=== PATIENT | female | born 1980 | race Caucasian/White ===

== ENCOUNTER 2020-03-25 09:34 | Day surgery (SDC) | payer OTHER ==
[2020-03-19 14:35] LABS: Absolute Lymphocytes (CBC) 0.6 K/uL (0.7-4.9); Basophils % 0.8 % (0-1.3); Hematocrit 33.8 % (36.0-45.0); Lymphocytes % 11.9 % (15.3-44.8); MPV 7.3 fL (7.6-11.3); RBC Red Blood Cell Count 3.86 M/uL (3.86-4.86)
[2020-03-19 15:35] LABS: Urine Appearance CLEAR; Urine Bilirubin NEGATIVE (NEG); Urine Blood NEGATIVE (NEG); Urine Color YELLOW; Urine Glucose NEGATIVE (NEG); Urine Protein NEGATIVE (NEG); Urine Specific Gravity >=1.030 (1.005-1.030); Urine Urobilinogen 0.2 mg/dL (0.2-1.0); Urine pH 5.5 (5.0-7.0)
[2020-03-19 15:50] LABS: Urine Microscopic Reflex NO UMIC
--- OUTSIDE RECORDS SUMMARY | 2020-03-25 09:37 | XMS REPORT | Continuity of Care Document ---
:1980 Author Organization [facility] Care Team Providers Name Role Phone G-volution Information miiCard Unavailable Un available Problems Problem Status Onset Classification Date Comments Sourc e Date Reported Atrial fibrillation Resolved Problem 01/20/2020 [facility] (disorder) Neuro Cerebral infarction Active Problem 01/20/2020 [facility] (disorder) Neuro Clot hematuria Resolved Problem 01/20/2020 Misc her (disorder) Neuro Crohn's disease Active Problem 01/20/2020 Mis raiza (disorder) Neuro History of - CVA Active Problem 01/20/2020 Mi tyree (context-dependent N euro category) Supraventricular Resolved Problem 01/20/2020 Mi tyree tachycardia Neuro (disorder) Medications Medication Details Route Status Patient Ordering Order Source Instructions Provider Date Entyvio 300 mg, Active Mischer IV, q6wk, 019 Neuro 0 Refill(s) rivaroxaban 15 15 mg = 1 Active Mischer MG Oral Tablet tab, PO, 019 Neuro [Xarelto] QPM, # 30 tab, 5 Refill(s), Pharmacy: [facility] Tramadol 50 mg, PO, Active [facility]ischer Q4-6H, PRN 019 Neuro Pain, # 20 tab, 0 Refill(s) Remicade 5 mg/kg, Active Mischer IV, 0 019 Neuro Refill(s) Imuran Daily, 0 Active Mischer Refill(s) 019 Neuro Prilosec PO, Daily, Active Mischer 0 019 Neuro Refill(s) rivaroxaban 15 15 mg = 1 No Longer Misch er MG Oral Tablet tab, PO, Active 019 Neuro [Xarelto] QPM, # 30 tab, 3 Refill(s), Pharmacy: [facility] Probiotic 1,000 mg Active Mischer Formula =, PO, 019 Neuro Daily, 0 Refill(s) Vitamin B12 1000 1,000 Active Mischer mcg/mL microgram, 019 Neuro injectable IM, qWeek, solution 0 Refill(s) Vitamin D3 10,000 Active Mischer IntlUnit, 019 Neuro PO, Daily, 0 Refill(s) Ranitidine 150 mg, Active Mischer PO, Daily, 019 Neuro 0 Refill(s) Phentermine 37.5 mg = Active [facility] Hydrochloride 1 tab, PO, 019 Neuro 37.5 MG Oral Daily, # Tablet 30 tab, 0 Refill(s) Allergies, Adverse Reactions, Alerts Substance Category Reaction Severity Reaction Status Date Comments S ource type Reported No Known Assertion Drug Misch er Medication allergy Neuro Allergies Immunizations No Data Provided for This Section Results Order Name Results Value Reference Date Interpretation Comments Ruma rce Range CHEM PANEL eGFR NON-AFR. 108 > OR = 60 11/18 Misch er [place] mL/min/. Neuro 3m2 CHEM PANEL BUN 11 7 - 25 11/18 Result Comment: Neuro
Lab test performed by:
[facility]
[address]
[place] [address]
Chery Sheffield CHEM PANEL Creatinine 0.70 0.50 - 11/18 [facility] Lvl 1. Neuro CHEM PANEL eGFR 126 > OR = 60 11/18 Mische r [place] mL/min/. Neuro 3m2 CHEM PANEL B/C Ratio NOT 6 - 22 11/18 [facility] Neuro HEMATOLOGY Eosinophils # 99 15 - 500 04 Mische r /2018 Neuro HEMATOLOGY Monocytes # 387 200 - 950 11/18cher Neuro HEMATOLOGY Lymphocytes # 1116 850 - 3900 11/18 Misc her /2018 Neuro HEMATOLOGY MPV 9.2 7.5 - 12.5 11/18 [facility] Neuro HEMATOLOGY RDW 14.1 11.0 - 11/18 Mischer 15.0 Neuro HEMATOLOGY Platelet 331 140 - 400 04 Neuro HEMATOLOGY Monocytes 8.6 04cher Neuro HEMATOLOGY Neutrophils # 2880 1500 - 11/18 [facility]ischer 7799 Neuro HEMATOLOGY Basophils 0.4 04 Result Mischer /2019 Comment: Neuro FASTING:YE S
<br/ >FASTING: YES HEMATOLOGY Eosinophils 2.2 04/ Neuro HEMATOLOGY Lymphocytes 24.8 11/18 Neuro HEMATOLOGY Basophils # 18 0 - 200 04 Neuro HEMATOLOGY Segs 64 11/18 Neuro HEMATOLOGY MCH 29.8 27.0 - 11/18 Mischer 33.0 /2018 Neuro HEMATOLOGY MCHC 32.2 32.0 - 11/18 M[facility] 36.0 /2018 Neuro HEMATOLOGY RBC X 10x6 4.20 3.80 - 04 Mischer 5.10 /2019 Neuro HEMATOLOGY WBC X 10x3 4.5 3.8 - 10.8 11/18 Result Comment: Neuro
Lab test performed by:
[facility]
[address]
[place] [address]
Chery Sheffield HEMATOLOGY MCV 92.4 80.0 - 11/18 [facility] 100.0 Neuro HEMATOLOGY Hct 38.8 35.0 - 11/18 [facility] 45.0 Neuro HEMATOLOGY Hgb 12.5 11.7 - 11/18 [facility] 15.5 /2018 Neuro Pathology Reports No Data Provided for This Section Diagnostic Reports No Data Provided for This Section Consultation Notes No Data Provided for This Section Discharge Summaries No Data Provided for This Section History and Physicals No Data Provided for This Section Vital Signs Vital Sign Value Date Comments Source Systolic [facility]) 112 [facility] Diastolic (mm Hg) 76 01/17/2020 [facility] Heart Rate 81 [facility]/17[facility]2020 [facility] Respitory Rate 16 01/17/2020 [facility] Height 165.1 cm [facility]/17[facility]2020 [facility] Weight 98.182 01/17/2020 [facility] BMI Calculated 36.02 01/17/2020 [facility] Systolic (mm Hg) 109 04/20/2019 [facility] Adithya ro Diastolic (mm Hg) 83 04/20/2019 [facility] Ne uro Heart Rate 77 04/20/2019 [facility] Respitory Rate 16 04/20/2019 [facility] Height 165.1 cm 04/20/2019 [facility] Weight 96.364 04/20/2019 [facility] Neuro BMI Calculated 35.35 04/20/2019 [facility] Height 165.1 cm 12/19/2018 [facility] Weight 91.364 12/19/2018 [facility] BMI Calculated 33.52 12/19/2018 [facility] Neuro Heart Rate 86 12/19/2018 [facility] Neuro Respitory Rate 16 12/19/2018 [facility] Systolic (mm Hg) 104 12/19/2018 [facility] Adithya ro Diastolic (mm Hg) 72 12/19/2018 [facility] Ne uro Systolic (mm Hg) 107 09/20/2018 [facility] Adithya ro Diastolic (mm Hg) 70 09/20/2018 [facility] Ne uro Heart Rate 94 09/20/2018 [facility] Respitory Rate 16 09/20/2018 [facility] Height 167.64 cm 09/20/2018 [facility] Weight 85.909 09/20/2018 [facility] Neuro BMI Calculated 30.57 09/20/2018 [facility] Height 167.64 cm 08/30/2018 [facility] Neuro Weight 83.182 08/30/2018 [facility] BMI Calculated 29.6 08/30/2018 [facility] Heart Rate 88 08/30/2018 [facility] Respitory Rate 16 08/30/2018 [facility] Systolic (mm Hg) 106 08/30/2018 [facility] Adithya ro Diastolic (mm Hg) 77 08/30/2018 [facility] Ne uro Encounters Location Location Encounter Encounter Reason Attending ADM DC Stat Source Details Type Number For Provider Date Date Visit Outpatient [id number] SERGEY 08/30 [facility] Leoncio MNA Outpatient [id number] Sergey 08/30 08/31 [facility] Neuro [facility] Outpatient [id number] SERGEY 09/20 [facility] Leoncio MNA Outpatient [id number] Sergey 09/20 09/21 [facility] Neuro [facility] Outpatient [id number] Sergey 12/19 [facility] Leoncio MNA Outpatient [id number] Sergey 12/19 12/20 [facility] Outpatient [id number] Sergey 04/20 [facility] Leoncio MNA Outpatient [id number] Sergey 04/20 04/21 [facility] Outpatient [id number] [facility] 05/24 [facility] [id number] Sergey 05/24 05/24 [facility] Outpatient [id number] Sergey 07/20 [facility] [place] [facility] [id number] Sergey 07/20 07/20 [facility] Outpatient [id number] Sergey 10/24 [facility] [id number] Sergey 10/24 10/24 [facility] [place] [facility] Outpatient [id number] Sergey 01/16 [facility] Outpatient [id number] Sergey 01/16 01/17 [facility] Outpatient [id number] Sergey 04/25 Active [facility] [place] Outpatient [id number] Sergey 04/25 Active [facility] Kre Leon[facility] Procedures Procedure Code Date Perfomer Comments Source Ablation [id number] [facility] Assessment and Plan No Data Provided for This Section Plan of Care No Data Provided for This Section Social History Social History Date Source Social History TypeResponse 08/30/2018 [facility] Neur o Alcohol Current1 Employment/School 2 Smoking Status Unknown if ever smoked; 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
--- OUTSIDE RECORDS SUMMARY | 2020-03-25 09:37 | XMS REPORT | Summary of Care ---
:1980 Author Organization [facility] [place] Address [address] [place] [address]- phone Encounter HQ Surinder(RAMON) [id number] Date(s): 01/17/20 - 01/17/20 [facility] [address] [place] [address]- [phone] Discharge Disposition: Home or Self Care Attending Physician: Castro Oro MD Referring Physician: Castro Oro MD Vital Signs Most recent to oldest [Reference Range]: 1 Height 165.1 cm (01/17/20 1:23 PM) Blood Pressure [90-140/60-90 mmHg] 112/76 mmHg (01/17/20 1:23 PM) Respiratory Rate [14-20 BRMIN] 16 BRMIN (01/17/20 1:23 PM) Peripheral Pulse Rate [60-100 bpm] 81 bpm (01/17/20 1:23 PM) Weight 98.182 kg (01/17/20 1:23 PM) Body Mass Index 36.02 m2 (01/17/20 1:23 PM) Problem List Condition Effective Dates Status Health Status Informant Atrial fibrillation(Confirmed) Resolved Ac cerebral infarction assoc w/ Active CSVT(Confirmed) Clot hematuria(Confirmed) Resolved Crohns disease(Confirmed) Active Hx of cerebral venous infarction Active associated with CSVT(Confirmed) SVT (supraventricular Resolved tachycardia)(Confirmed) Allergies, Adverse Reactions, Alerts No Known Medication Allergies Medications No Known Medications Results No data available for this section Immunizations No data available for this section Procedures Procedure Date Related Diagnosis Body Site Status Ablation Completed Social History Social History Type Response Alcohol Current1 Employment/School 2 Smoking Status Unknown if ever smoked; Expo sure to Tobacco Smoke Unable to obtain; Cigarette Smoking Last 365 Days Unable to obtain; Reg Smoking Cessation Counseling No entered on: 01/17/20 1Social [id number] disclose medicval informatiom to lindy Stapleton-Mother Assessment and Plan No data available for this section
--- OUTSIDE RECORDS SUMMARY | 2020-03-25 09:38 | XMS REPORT | Continuity of Care Document ---
:1980 Author Organization [facility] t Address [address] [place] [address] Care Team Providers Name Role Phone Adalid Oro Attending Clinician Payers Payer Name Policy Type Policy Number Effective Date Expiration Date S ource Problems Condition Condition Condition Status Onset Resolution Last Treating Co mments Source Name Details Category Date Date Treatment Clinician Date Atrial Problem Resolve 2020-01-20 Balta bharat fibrillati d 00:09:12 l on Atrial Leoncio (disorder) fibrillati on (disorder) Resolved Problem 01/20/2020 [facility] Clot Problem Resolve 2020-01-20 Balta bharat hematuria d 00:09:12 l (disorder) Clot Garrett n hematuria (disorder) Resolved Problem 01/20/2020 [facility] Supraventr Problem Resolve 2020-01-20 Memoria icular d 00:09:12 l tachycardi Garrett n a Supraventr (disorder) icular tachycardi a (disorder) Resolved Problem 01/20/2020 [facility] Cerebral Problem Active 2020-01-20 Mem oria infarction 00:09:12 l (disorder) Cerebral He rmann infarction (disorder) Active Problem 01/20/2020 [facility] Crohn's Problem Active 2020-01-20 Balta bharat disease 00:09:12 l (disorder) Crohn's Her silva disease (disorder) Active Problem 01/20/2020 [facility] History of Problem Active 2020-01-20 M emoria - CVA 00:09:12 l (context-d History Her silva ependent of - CVA category) (context-d ependent category) Active Problem 01/20/2020 [facility] Allergies, Adverse Reactions, Alerts Allergy Allergy Status Severity Reaction(s) Onset Inactive Treating Comm ents Source Name Type Date Date Clinician No Known DA Active [facility] All[facility]ie 6-15 Chong s 00:00: [facility] 00 [facility] No Known No Known Active Memori a Medicati Medicati l on on [place] Allergie Allergie s s Social History Social Habit Start Date Stop Date Quantity Comments Source Social History 2018-08-30 2018-08-30 [facility] 14:50:01 14:50:01 Medications Ordered Filled Start Stop Current Ordering Indication Dosage Frequency Signature Comments Components Source Medication Medication Date Date Medication? Clinician (SIG) Name Name Tobias Yes 300 mg, Memoria 9-06 IV, q6wk, l 14:29: 0 Refill(s) rivaroxaban Yes 15 mg = 1 M emoria 15 MG Oral 5-07 tab, PO, l Tablet 14:32: QPM, # 30 Garrett n [Xarelto] 32 tab, 5 Refill(s), Pharmacy: [facility] Tramadol Yes 50 mg, PO, Mem oria 5-07 Q4-6H, PRN l 14:24: Pain, # 20 [place] 00 tab, 0 Refill(s) Remicade Yes 5 mg/kg, Memor ia 5-07 IV, 0 l 14:24: Refill(s) Imuran Yes Daily, 0 Memoria 5-07 Refill(s) l 14:24: Prilosec 0 Yes PO, Daily, Mem oria 5-07 0 l 14:24: Refill(s) rivaroxaban No 15 mg = 1 M emoria 15 MG Oral 1-17 tab, PO, l Tablet 16:29: QPM, # 30 Garrett n [Xarelto] 00 tab, 3 Refill(s), Pharmacy: [facility] Probiotic Yes 1,000 mg Balta bharat Formula 1-16 =, PO, l 14:37: Daily, 0 Refill(s) Vitamin B12 Yes 1,000 Memor ia 1000 mcg/mL 1-16 microgram, l injectable 14:37: IM, qWeek, H ermann solution 00 0 Refill(s) Vitamin D3 2019- Yes 10,000 Memor ia 1-16 IntlUnit, l 14:37: PO, Daily, [place] 00 0 Refill(s) Ranitidine 2018- Yes 150 mg, Balta bharat 1-16 PO, Daily, l 14:37: 0 Leoncio 00 Refill(s) Phentermine Yes 37.5 mg = M emoria Hydrochlori -16 1 tab, PO, l de 37.5 MG 14:37: Daily, # Her silva Oral Tablet 00 30 tab, 0 Refill(s) Vital Signs Vital Name Observation Time Observation Value Comments Source Systolic (mm Hg) 2020-01-17 18:23:00 Balta rial [place] Diastolic (mm Hg) 2020-01-17 18:23:00 Mem orial [facility] Heart Rate 2020-01-17 18:23:00 [facility] [place] Respitory Rate 2020-01-17 18:23:00 Memori al [place] Height 2020-01-17 18:23:00 165.1 cm [facility] [place] Weight 2020-01-17 18:23:00 [facility] [place] BMI Calculated 2020-01-17 18:23:00 Memori al [place] Systolic (mm Hg) 2019-04-20 14:20:00 Balta rial [place] Diastolic (mm Hg) 2019-04-20 14:20:00 Mem orial [place] Heart Rate 2019-04-20 14:20:00 [facility] [place] Respitory Rate 2019-04-20 14:20:00 Memori al [place] Height 2019-04-20 14:20:00 165.1 cm [facility] [place] Weight 2019-04-20 14:20:00 [facility] [place] BMI Calculated 2019-04-20 14:20:00 Memori al [place] Height 2018-12-19 14:13:00 165.1 cm [facility] [place] Weight 2018-12-19 14:13:00 [facility] [place] BMI Calculated 2018-12-19 14:13:00 Memori al [place] Heart Rate 2018-12-19 14:13:00 [facility] [place] Respitory Rate 2018-12-19 14:13:00 Memori al [place] Systolic (mm Hg) 2018-12-19 14:13:00 Balta rial [place] Diastolic (mm Hg) 2018-12-19 14:13:00 Mem orial [place] Systolic (mm Hg) 2018-09-20 15:11:00 Balta rial [place] Diastolic (mm Hg) 2018-09-20 15:11:00 Mem orial [place] Heart Rate 2018-09-20 15:11:00 [facility] [place] Respitory Rate 2018-09-20 15:11:00 Memori al [place] Height 2018-09-20 15:11:00 167.64 cm [facility] [place] Weight 2018-09-20 15:11:00 [facility] [place] BMI Calculated 2018-09-20 15:11:00 Memori al [place] Height 2018-08-30 14:35:00 167.64 cm [facility] [place] Weight 2018-08-30 14:35:00 [facility] [place] BMI Calculated 2018-08-30 14:35:00 Memori al [place] Heart Rate 2018-08-30 14:35:00 [facility] [place] Respitory Rate 2018-08-30 14:35:00 Memori al [place] Systolic (mm Hg) 2018-08-30 14:35:00 Balta rial [place] Diastolic (mm Hg) 2018-08-30 14:35:00 Mem orial [place] Procedures Procedure Date / Time Performed Performing Clinician Sourc e Ablation [facility] [place] Encounters Start End Encounter Admission Attending Care Care Encounter Source Date/Time Date/Time Type Type Clinicians Facility Department ID 2020-01-17 2020-01-17 Outpatient HARRIET OroSCHAARON [id number] 13:00:00 23:59:59 Castro 07 Adalid 2019-10-25 2019-10-25 Outpatient KARI OroSCHAARON GENTILEMISCHER [id number] 08:45:00 08:45:00 Castro Adalid 2019-07-20 2019-07-20 Outpatient HARRIET OroSCHAARON [id number] 09:30:00 09:30:00 Castro 05 Adalid 2019-05-24 2019-05-24 Outpatient HARRIET OroSCHER [id number] 15:00:00 15:00:00 Castro 04 Adalid 2019-04-20 2019-04-20 Outpatient HARRIET OroMISCHER [id number] 09:00:00 23:59:59 Castro 03 Adalid 2018-12-19 2018-12-19 Outpatient HARRIET Oro [id number] 08:45:00 23:59:59 Castro 02 Adalid 2018-09-20 2018-09-20 Outpatient HARRIET Oro [id number] 08:45:00 23:59:59 Castro Adalid 2018-08-30 2018-08-30 Outpatient HARRIET Oro [id number] 08:30:00 23:59:59 Castro 00 Adalid Results Test Description Test Time Test Comments Results Result Comments Source CBC W/AUTO DIFF 2020-01-31 08:55:00 Test Item Value Reference Range Interpretation Comme nts WHITE BLOOD CELL (test code = WBC) 4.8 x10 3/uL 4.8-10.8 N RED BLOOD CELL (test code = RBC) 4.05 x10 6/uL 4.20-5.40 L HEMOGLOBIN (test code = HGB) 12.2 g/dL 14.5-20 L HEMATOCRIT (test code = HCT) 37.8 % 37.0-47.0 N MEAN CELL VOLUME (test code = MCV) 93.3 fL 81.0-99.0 N MEAN CELL HGB (test code = MCH) 30.1 pg 27-31 N MEAN CELL HGB CONCENTRATION (test code = MCHC) 32.3 G/DL 33-36.5 L RED CELL DISTRIBUTION WIDTH (test code = RDW) 13.6 % 12.9-16. 9 N PLATELET COUNT (test code = PLT) 334 150-440 N MEAN PLATELET VOLUME (test code = MPV) 8.4 fL 8.9-12.4 L NEUTROPHIL % (test code = NT%) 76.4 % 42.2-75.2 H LYMPHOCYTE % (test code = LY%) 12.4 % 20.5-51.1 L MONOCYTE % (test code = MO%) 7.3 % 1.7-9.3 N EOSINOPHIL % (test code = EO%) 2.9 % 0.0-7.0 N BASOPHIL % (test code = BA%) 0.4 % 0-2.5 N NEUTROPHIL # (test code = NT#) 3.64 x10 3/uL 1.80-7.70 N LYMPHOCYTE # (test code = LY#) 0.59 x10 3/uL 1.00-4.80 L MONOCYTE # (test code = MO#) 0.35 x10 3/uL 0.00-0.80 N EOSINOPHIL # (test code = EO#) 0.14 x10 3/uL 0.00-0.45 N BASOPHIL # (test code = BA#) 0.02 x10 3/uL 0.0-0.20 N Novel Coronavirus 2019 [id number] 07:56:00 Test Item Value Reference Range Interpretation Comments Novel Coronavirus 2019 Inhouse (test Negative Negative code = COVNONPUI) Testing Criteria: Preprocedure ScreeningUR HCG [id number] 14:47:00 Test Item Value Reference Range Interpretation Comments UR HCG QUAL (test code = HCGQLU) NEGATIVE NEGATIVE CHEM [id number] 13:33:41752Ccsvnrzl HermannCHEM [id number] 13:33:0011 [facility]annCHEM [id number] 13:33:000.70[facility] HermannCHEM PANEL 2018-11-18 13:33:75491Ugyllopk MyxwpmcFMHTSUJLCD8154-40-23 13:33:0099[facility] WmylsviTLJVMMWYCU7904-62-85 13:33:19813Bnteapio JonuskbSQLPQOCRFY1271-63-24 13:33:059627Mervljkn UncbfyaFMRXDFYOOW9576-96-82 13:33:009.2[facility] [place] EKCFVCQYDU1996-07-02 13:33:0014.1[facility] KtozmtnOPQJIHHRBW6216-64-62 13:33:00 331[facility] CqmegpcOTUKHICPLQ0818-00-54 13:33:008.6[facility] HermannHEMATOLOGY 2018-11-18 13:33:254839Shbzqwai YgvymqbWTJVWJTSUS7728-25-88 13:33:000.4[facility]orial HduotgiJKMEVADXOS2320-98-19 13:33:002.2[facility] PmrnahpMPICCNJEFU3656-14-87 13:33:0024.8[facility] OaagnwwQQCGKWAYBQ5033-75-35 13:33:0018[facility] [id number] 13:33:0064[facility] LjcrynxFCMNQCTXOC0303-17-57 13:33:00 Test Item Value Reference Range Interpretation Comments MCH (test code = MCH) 29.8 pg 27.0-33.0 [facility] IghstgjACJQFIKCHI6390-82-38 13:33:0032.2[facility] HermannHEMATOLOGY 2018-11-18 13:33:004.20[facility] KvzulniRMOLDLFOQF2075-17-97 13:33:004.5[facility]orial JgptqdqHANOMUNQFZ6303-46-99 13:33:0092.4[facility]orial MptfhnyGXXTVGUKJY3751-33-35 13:33:0038.8[facility]orial QpewuxvFIAQLIESPV0378-20-44 13:33:0012.5[facility]
[2020-03-25] MEDS ORDERED: SCOPOLAMINE HYDROBROMIDE PATCH TD ONE (10:08)
[2020-03-25] MEDS ORDERED: Ringers Lactate 1,000 ML IV ONE ×2 (10:08→12:55)
[2020-03-25 10:22] LABS: Specific Gravity >= 1.030 (1.005-1.030)
[2020-03-25] MEDS ORDERED: LIDOCAINE 2% MPF 5 ML VIAL ONE (11:10)
[2020-03-25] MEDS ORDERED: propofoL 200 MG/20 ML VIAL IV ONE (11:10)
[2020-03-25] MEDS ORDERED: dexAMETHasone 10 MG/ML VIAL ONE (11:10)
[2020-03-25] MEDS ORDERED: MIDAZOLAM HCL 2 MG/2 ML INJ ONE (11:10)
[2020-03-25] MEDS ORDERED: KETOROLAC 30 MG/ML INJ ONE (11:10)
[2020-03-25] MEDS ORDERED: FENTANYL CITR 250 MCG/5 ML ONE (11:11)
[2020-03-25] MEDS ORDERED: ONDANSETRON 4 MG/2 ML VIAL ONE ×2 (11:11→14:42)
[2020-03-25] MEDS ORDERED: ROCURONIUM 50 MG/5 ML VIAL IV ONE (11:11)
[2020-03-25] MEDS ORDERED: NS 0.9% VIAL 10 ML ONE (11:21)
[2020-03-25] MEDS ORDERED: Phenylephrine HCl 10 MG/ML 1 ML VIAL ONE (11:21)
[2020-03-25] MEDS: BUPIVACAINE 0.25% PF 30 ML VIAL ONE ×2 (11:29→12:23)
--- NOTE | 2020-03-25 12:55 | P.OP ---
Director Medical: Melonie Villa Preoperative diagnosis: Crohns Disease Postoperative diagnosis: Crohns Disease Primary procedure: Diagnostic Laparoscopy Secondary procedure: See Dr. Villa note for full operative details Anesthesia: GETA Estimated blood loss: <1cc Specimen: None Findings: Right colon inflammation, thick, firm, fibrous adjesions to TI, no fistulas Complications: None Transferred to: Recovery Room Condition: Good
[2020-03-25] MEDS: Ringers Lactate 1,000 ML IV ONE ×2 (14:18→14:42)
[2020-03-25] MEDS: HYDROMORPHONE HCL 1 MG/ML INJ ONE ×4 (14:31→14:46)
[2020-03-25] MEDS ORDERED: HYDROMORPHONE HCL 1 MG/ML INJ ONE (14:56)
[2020-03-25] MEDS ORDERED: HYDROCODONE/APAP 5/325 MG TAB ONE ×2 (15:34→15:37)
[2020-03-25 16:28] VITALS: BP 92/54; TEMP 97.4; O2SAT 98
--- NOTE | 2020-03-27 16:41 | OP ---
Date of Procedure: 03/25/2020 Surgeon: Melonie Villa MD In Service Educator: Natalia Perez. Preoperative Diagnoses: History of heavy periods, status post ablation, pelvic pain, Crohn disease a nd right 6.6 cm adnexal mass with cavernous sinus thrombosis, history of cavernous sinus thrombosis w ith recanalization. Postoperative Diagnoses: History of heavy periods, status post ablation, pelvic pain, Crohn disease and right 6.6 cm adnexal mass with cavernous sinus thrombosis, history of cavernous sinus thrombosis with recanalization and endometriosis. 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 Awaiting pathology. Procedures Performed: 1.Diagnostic hysteroscopy. 2.Diagnostic laparoscopy. 3.Pelvic washings. 4.Right oophorectomy. 5.Bilateral salpingectomy. 6.Endometriosis fulguration with bipolar cautery. Anesthesia: General endotracheal. Care was taken to place the patient for the least amount of time in Trendelenburg position and not mo re than 10-20 degrees of Trendelenburg was used. This was due to her history of cavernous sinus thro mbosis and Dr. Gurrola was her anesthesiologist who spoke to Dr. Dacosta, her neurologist after my consult ation with him on the phone in the OR regarding her risk for anesthesia after her cavernous sinus thr ombosis. He clarified that it is recanalized and that she could be put in Trendelenburg and after th is discussion, we proceeded with the procedure. Estimated Blood Loss: Minimal. Specimens: Right ovary with the cyst intact in bag. Left and right tubes. Complications: No complications. Drains: No drains. Condition: Stable. Findings: Bilateral endometrial cavity on hysteroscopy had significant scar tissue, was very difficu lt to open up other than a thin narrow cavity that was visualized with scar likely Asherman status po st NovaSure. On laparoscopy, there was a large right adnexal mass, smooth lining. No abnormal growth on the surfa ce, no adhesions and did not have any endometriosis on the right lateral wall or on the surface. On the left lateral wall lateral to the infundibulopelvic ligament at the pelvic brim there was an impla nt of endometriosis on the peritoneum and there was another implant on the IP ligament. These 2 were cauterized with the bipolar. These were fulgurated with the bipolar energy. The specimen was removed along with the ovary, placed in the bag and without any rupture the extensio n of the umbilical incision to 2 cm on the skin surface and about 3 cm on the fascia and after openin g the bag carefully needle suction was used to start draining the fluid as soon as the size had decre ased to fit through the opening, the suction was stopped. The bag was still closed and removed. The re was no spillage. Consulting Co-surgeon: Dr. Prashanth Russ. He did the diagnostic laparoscopy to evaluate her Crohn dis ease and possible fistula in the small bowel. The patient with perianal fistula. Please refer to hi s note for this separate procedure. There was no evidence of any endometriosis on the colon, on the small bowel. Segment of small bowel at the terminal ileum about 10 cm noted, that was thickened, likely consistent with Crohn's. The patient presented on referral from Dr. Stern for right 6.6 cm adnexal mass found on MRI, possibl e endometriosis, sent over to me. After evaluation, the exam appeared to be consistent with endometr iosis. After discussion with patient she has had a NovaSure and Adiana procedure in the past for hea vy periods and she has been doing better from her bleeding standpoint; however, the bleeding has rest arted. Her most significant problem was pain and with the adnexal mass, possibility of endometriosis was discussed. She also has significant history of Crohn's. As dictated above discussions were hel d and due to her complex history of hypercoagulable state the patient on a blood thinner, and history of possible atrial fibrillation, we got a medical clearance from Dr. Hope then colorectal surgery discussed with her colorectal surgeon in [place]. Regarding the risks for doing this procedure and possibility to encounter significant adhesions or fistula or increased risk of this Dr. Benigno carver was her surgeon that I talked to. He was planning on working on her perianal fistula. No concer ns were expressed other than what was routine and that we would get more information on laparoscopy a nd pass it on to him. Then her blood thinner was stopped 36 hours prior. She was consented and brou ght to the OR for hysteroscopy and laparoscopy, right ovarian cystectomy or oophorectomy and bilatera l salpingectomy due to her pain and for treatment of pain. Description Of Procedure: After informed consent was verified, she was taken back to the OR. No ind icated antibiotics for this procedure. SCDs were placed. The patient was placed in a supine fashion on the operating table. General anesthesia was given. She was placed in a dorsal lithotomy positio n. Abdomen, vulva, vagina, and perineum prepped and draped in a sterile fashion. Lester placed to dr husain the bladder. Speculum placed to expose the cervix. Anterior lip grasped with 2 Allis clamps and diagnostic hysteroscopy was performed with the SlimLine hysteroscope. There was a very narrow canal after entry passes internal os significant intrauterine adhesions were seen. No other pathology was seen. The scope was removed. Uterine manipulator placed. After this bottom area was draped, 1 cm infraumbilical incision was made with a scalpel. Fascia inci sed and tagged with 0 Vicryl sutures. Peritoneum entered sharply. S-retractors were placed, Bernarda introduced. Site of entry checked and unremarkable. A 5 left lower quadrant suprapubic ports were p laced under direct vision while the patient was still supine. Discussion was held with Dr. Praneeth koo ore the start of the procedure regarding the possibility of putting the patient in Trendelenburg posi tion safely without increased intracranial pressures. There was no monitoring available in the local hospital. His impression was that it was safe to proceed with this, and after speaking to the anest hesiologist. Once all the ports were placed, she was placed in Trendelenburg. Pelvic washings were done. The tumor was visualized. It was about 6-7 cm, freely mobile. Once the pelvic washings were retrieved, then salpingo-oophorectomy was performed with the LigaSure in the usual fashion. Then on the left side salpingectomy was performed after visualizing the endometriosis at the pelvic brim late ral to that, endometriosis was fulgurated with the bipolar cautery on both sides to keep the procedur e shortest as possible and to get done with all the procedures as she was consented for. Both the tubal specimens were removed through the umbilical port. 5 left lower quadrant port had to be placed in order for me to complete the oophorectomy as it was difficult with very little to visual ize the side and access it. Once this was done, the specimen was placed in the bag. The ovary and c yst intact through the umbilical port. The scope was replaced through the umbilical port and pelvic wall. The good irrigation was done and suctioned, once there was adequate hemostasis at the pedicles , scope was removed. All the trocars were removed under direct vision and umbilical incision after t he Bernarda was removed. The strings of the bag along with the opening of the bag were pulled out and held with a Leah clamp. The incision was extended on the skin and the fascia as discussed and once the opening of the bag was slightly opened to facilitate the needle suction to be introduced, careful suctioning was started as soon as the size was decreased to fit through the opening, this was pulled out. The umbilical fascial incision closed with the help of a continuous running 0 Vicryl suture and all s kin incisions were closed with the help of interrupted 4-0 Vicryl. The VCare removed and Lester remov ed. There was a small amount of bleeding more than what was expected. This was observed as this was the same pattern for all the skin incisions as well. Eventually the bleeding had stopped and there was good hemostasis. Injection of the fascia was done with Marcaine at the entry. No NSAIDs were given for this patient. EBL was minimal. Instrument, ne edle, and sponge counts were correct. She was recovered and the patient was taken to PACU in stable condition with PAD count and sent home with [place] prescription. She will follow up with me in 1 week . On the cornual ends of both tubes due to Adiana, either there was fibroid or fibrotic reaction, fi brosis around the device that was present, but this did not warrant any further dissection for remova l of it. The tubes were removed without any problems entirely. She has 1 week followup appointment with me same-day discharge. BRITNI/ELDER Voice ID: [id number] Report ID: [id number]
--- NOTE | 2020-04-02 10:41 | OP ---
Date of Procedure: 03/25/2020 Surgeon: Prashanth Russ MD, Reason For Consultation: Dr. Villa consulted me intraoperatively to evaluate the patient who has a history of known Crohn disease, CT evidence of possible inflammatory changes to the right side of t he colon and near the ileocecal valve with possible adhesion formation. There was concern for a colo vesical fistula and as such I was consulted to see the patient. Please see Dr. Villa's note for f ull details. Preoperative Diagnosis: Crohn disease. Postoperative Diagnosis: Crohn disease. Procedure Performed: Diagnostic laparoscopy. Secondary Procedure: Please see Dr. Villa's note for full operative details regarding her aspect of the case. Anesthesia: General endotracheal. Estimated Blood Loss: For my portion was 1 mL. Specimen: None. Findings: It was right colon inflammatory change with a thick fibrous firm adhesions to the TI. No fistulas were evident. The colon was thickened and had thick adhesions to the lateral abdominal wall and the TI was inflamed without evidence of perforation and there were minimal intraabdominal adhesi ons to this area. No obvious enteroenteric fistulas appreciated at this time. Complications: None. The patient remained in the operating room after my procedure. Please see Dr. Villa's note for fu ll details. Procedure In Detail: The patient was already prepped and draped in the usual sterile fashion. Dr. Naty lagunas had placed laparoscopic trocars and using her placed trocars (please see Dr. Villa's note for details), I visualized the patient's intestines. I ran the small bowel from the ileocecal valve to the ligament of Treitz and visualized the intraperitoneal portion of the colon. The only signific ant findings were she had significant right-sided inflammatory changes consistent with her diagnosis of Crohn disease. It was predominantly near the cecal area, but it did extend somewhat up to the rig ht colon. The ileocecal valve appeared to have some inflammatory changes and a thick inflammatory ri nd was evident on the lateral aspect of the colon to the peritoneum. There did not appear to be any fistulous connecting to the bladder or other pelvic organs. There did not appear to be enteroenteric fistulas. There were only small areas of skip lesions without any evidence of stenosis or stricture throughout the small bowel. The only area of significant inflammatory change was near the ileocecal valve in the right colon. However, there was no evidence of perforations or imminent concern at thi s point. It appeared to be a chronic inflammatory change consistent with her diagnosis of Crohn's. I therefore washed out the abdomen and did a minimal adhesiolysis of small bowel as described to run the bowel. After this was completed, I handed the procedure back over to Dr. Villa. Please see h er note for full details. JOSE/ELDER Voice ID: [id number] Report ID: [id number]
== END 2020-03-25 16:20 | disposition home or self-care (01) ==
LOC: OR 09:34
PROVIDERS: ATTEND Obstetrics & Gynecology
PROC: 0UT74ZZ Resection of Bilateral Fallopian Tubes, Percutaneous Endoscopic Approach (ICD-10-PCS; 2020-03-25)
PROC: 0U544ZZ Destruction of Uterine Supporting Structure, Percutaneous Endoscopic Approach (ICD-10-PCS; 2020-03-25)
PROC: 0D5W4ZZ Destruction of Peritoneum, Percutaneous Endoscopic Approach (ICD-10-PCS; 2020-03-25)
PROC: 0UJD8ZZ Inspection of Uterus and Cervix, Via Natural or Artificial Opening Endoscopic (ICD-10-PCS; 2020-03-25)
PROC: 0UT04ZZ Resection of Right Ovary, Percutaneous Endoscopic Approach (ICD-10-PCS; principal; 2020-03-25 10:30)
DX: N92.0 Excessive and frequent menstruation with regular cycle (principal); D27.0 Benign neoplasm of right ovary; D25.9 Leiomyoma of uterus, unspecified; N80.1 Endometriosis of ovary; N80.3 Endometriosis of pelvic peritoneum; N83.201 Unspecified ovarian cyst, right side; K66.0 Peritoneal adhesions (postprocedural) (postinfection); K50.90 Crohn's disease, unspecified, without complications; K60.3 Anal fistula; Z79.01 Long term (current) use of anticoagulants; Z79.899 Other long term (current) drug therapy; Z11.59 Encounter for screening for other viral diseases
CPT/HCPCS: 85025; 36415; 86900; 88108; 86850; 81025; 86901; 88305 ×2; 81003; 58661; 58662; 58555; U0002; J2704; J2370; J2250; J3010; J1100; J1170 ×2; J7120 ×3; J2405 ×2

== ENCOUNTER 2020-11-24 07:29 | Day surgery (SDC) | payer OTHER ==
[2020-11-24] MEDS ORDERED: NA CHLORIDE 0.9% 500 ML ONE (08:47)
[2020-11-24 10:05] VITALS: BMI 33.9
[2020-11-24 14:55] VITALS: BP 123/84; TEMP 98.8; O2SAT 98
[2020-11-24 14:57] LABS: Hematocrit 30.4 % (36.0-45.0)
== END 2020-11-24 14:40 | disposition home or self-care (01) ==
LOC: DS 07:29
PROVIDERS: ATTEND Internal Medicine Gastroenterology
DX: D64.9 Anemia, unspecified (principal)
CPT/HCPCS: 36415; 86900; 86850; 86901; 85018; 85014; 36430; P9016 ×2; J7050